=== PATIENT | female | born 1955 | race Caucasian/White ===

== ENCOUNTER 2017-11-05 12:13 | Emergency (ER) | payer SELFPAY ==
[~2017-11-05 12:13] MED LIST: CLON.1 PO
[2017-11-05 12:35] VITALS: BP 132/70; PULSE 99; RESP 16; TEMP 97.9; O2SAT 99
--- NOTE | 2017-11-05 13:06 | RADRPT ---
EXAM DATE/TIME: 11/05/2017 12:56 [place] COMPARISON: No previous studies available for comparison. INDICATIONS : Left ankle pain for the past few days. No known injury. MEDICAL HISTORY : None. SURGICAL HISTORY : ORIF left tibia. ENCOUNTER: Initial ACUITY: 3 days PAIN SCORE: 8/10 LOCATION: Left ankle. FINDINGS: Three view exam was performed of the left ankle. Status post internal fixation of the tibia. The hard greco is grossly intact. There is an old healed fracture involving the upper fibula. No acute fracture or joint dislocation is seen. There is osteopenia of the bony structures. There is mild soft tissue swelling just above the lateral malleolus. There is an old healed fracture of the distal tibia.. CONCLUSION: 1. Old healed fractures of the tibia and fibula. 2. Mild soft tissue swelling just above the lateral malleolus. 3. No acute fracture or joint dislocation. Arik Mota MD on November 05, 2017 at 13:03 Board Certified Radiologist. This report was verified electronically.
[2017-11-05] MEDS ORDERED: DICL75TA PO (14:29)
[2017-11-05] MEDS ORDERED: LISI30TA4 PO (14:29)
[2017-11-05] MEDS ORDERED: TRAM50TA PO (14:29)
[2017-11-05] MEDS ORDERED: AMLO10TA2 PO (14:29)
--- NOTE | 2017-11-05 14:35 | PD ---
HPI Chief Complaint: Injury Time Seen by Provider: 14:11 Travel History International Travel<30 days: No Contact w/Intl Traveler<30days: No Traveled to known affect area: No History of Present Illness HPI 62-year-old female that presents to the ED for evaluation of pain and swelling to her left ankle. Per patient she's had this on and off for the past 10 days and is getting worse. Per patient is more swollen. She denies any injury but states that she's been walking a lot for her work. She denies any falls but has had a previous injury with hardware in there. Denies any numbness, tingling , weakness. No recent travel. Hasn't taken anything for this. Denies any other medical issues. Pain per patient is 6 out of 10. Gets worse with weightbearing. Able to ambulate PFSH Past Medical History Anxiety: Yes Depression: Yes Diminished Hearing: No Hepatitis: Yes (HEP C) Hypertension: Yes Psychiatric: Yes Menopausal: Yes Past Surgical History Other Surgery: Yes Social History Alcohol Use: Yes (12 PACK BEER A DAY) Tobacco Use: Yes (2 1/2 PACK ) Substance Use: No Allergies-Medications (Allergen,Severity, Reaction): Coded Allergies: propoxyphene (Unverified Allergy, Severe, UPSET STOMACH, 04/03/17) acetaminophen (Unverified Allergy, Mild, 04/03/17) Reported Meds & Prescriptions Reported Meds & Active Scripts Active Tramadol (Tramadol HCl) 50 Mg Tab 50 Mg PO Q6H PRN Amlodipine (Amlodipine Besylate) 10 Mg Tab 10 Mg PO DAILY Lisinopril 30 Mg Tab 30 Mg PO DAILY Diclofenac Sodium DR (Diclofenac Sodium) 75 Mg Tabdr 75 Mg PO BID PRN Catapres 0.1 mg (Clonidine HCl) 0.1 Mg Tab 1 Tab PO TID Review of Systems Except as stated in HPI: all other systems reviewed are Neg Physical Exam Narrative GENERAL: SKIN: Warm and dry. HEAD: Atraumatic. Normocephalic. EYES: Pupils equal and round. No scleral icterus. No injection or drainage. ENT: No nasal bleeding or discharge. Mucous membranes pink and moist. NECK: Trachea midline. No JVD. CARDIOVASCULAR: Regular rate and rhythm. RESPIRATORY: No accessory muscle use. Clear to auscultation. Breath sounds equal bilaterally. GASTROINTESTINAL: Abdomen soft, non-tender, nondistended. Hepatic and splenic margins not palpable. MUSCULOSKELETAL: Extremities without clubbing, cyanosis, or edema. No obvious deformities. Full range of motion of the upper and lower extremities bilaterally. 2+ pulses bilaterally. Patient has old surgical scars on the left ankle. Soft tissue swelling noted over the one plus pitting edema. No bruising or erythema noted. No warmth to touch. No wrist bony deformity noted however. No lateral medial malleolar pain. Sensation intact bilaterally. Able to move the ankle fully. NEUROLOGICAL: Awake and alert. No obvious cranial nerve deficits. Motor grossly within normal limits. Five out of 5 muscle strength in the arms and legs. Normal speech. PSYCHIATRIC: Appropriate mood and affect; insight and judgment normal. Data Data Last Documented VS Vital Signs Date Time Temp Pulse Resp B/P (MAP) Pulse Ox O2 Delivery O2 Flow Rate FiO2 11/05/17 12:35 97.9 99 16 132/70 (90) 99 Orders Orders Ankle, Complete ([id number]) (11/05/17 ) Splint Or Brace Apply/Monitor (11/05/17 14:30) [facility] Medical Decision Making Medical Screen Exam Complete: Yes Emergency Medical Condition: Yes Medical Record Reviewed: Yes Interpretation(s) Last Impressions Ankle X-Ray 11/05/17 0000 Signed Impressions: Service Date/Time: Sunday, November 05, 2017 12:56 - CONCLUSION: 1. Old healed fractures of the tibia and fibula. 2. Mild soft tissue swelling just above the lateral malleolus. 3. No acute fracture or joint dislocation. Arik Mota MD Differential Diagnosis Fracture versus sprain versus strain versus bruise versus contusion Narrative Course 62-year-old female that presents to the ED for evaluation of left ankle pain. Patient was properly examined and was found to have signs and symptoms of unclear etiology with possible related to arthritis versus sprain. This time I recommend brace. Patient was given pain medications to use as needed. Patient was told to apply ice or warm compresses. Elevate the leg. Use [place] wrap. Patient declines crutches. Patient was given note for work. See ED worsening symptoms. Patient requests a refill of her blood pressure medications and this was given a short refill. She was told to follow with primary care doctor. Diagnosis Primary Impression: Ankle pain, left Qualified Codes: M25.572 - Pain in left ankle and joints of left foot Additional Impression: Hypertension Qualified Codes: I10 - Essential (primary) hypertension Patient Instructions: General Instructions Additional Instructions: Take medications as prescribed. Follow-up with PCP. See ED for any worsening symptoms. Do not drink or drive while taking pain medication. Apply ice or heat as needed for pain Med/Other Pt SpecificInfo: Prescription(s) given Scripts Tramadol (Tramadol) 50 Mg Tab 50 MG PO Q6H Y for PAIN, #12 TAB 0 Refills Prov: Servando Gordillo MD 11/05/17 Amlodipine (Amlodipine) 10 Mg Tab 10 MG PO DAILY for Blood Pressure Management, #30 TAB 0 Refills Prov: Servando Gordillo MD 11/05/17 Lisinopril (Lisinopril) 30 Mg Tab 30 MG PO DAILY for Blood Pressure Management, #30 TAB 0 Refills Prov: Servando Gordillo MD 11/05/[address] (Diclofenac Sodium DR) 75 Mg Tabdr 75 MG PO BID Y for PAIN SCALE 1 TO 10, #20 TAB 0 Refills Prov: Servando Gordillo MD 11/05/17 Disposition: 01 DISCHARGE HOME Condition: Stable José Manuel Cook Nov 05, 2017 14:35
== END 2017-11-05 15:07 | disposition home or self-care (01) ==
LOC: NED 12:13 → NEPA 15:07
DX: M25.572 Pain in left ankle and joints of left foot (principal); M25.472 Effusion, left ankle; F41.9 Anxiety disorder, unspecified; F32.9 Major depressive disorder, single episode, unspecified; I10 Essential (primary) hypertension; F17.200 Nicotine dependence, unspecified, uncomplicated; Z86.19 Personal history of other infectious and parasitic diseases; Z79.899 Other long term (current) drug therapy; Z88.6 Allergy status to analgesic agent
CPT/HCPCS: 73610; 99283; L1906